=== PATIENT | male | born 1950 | race Caucasian/White ===

== ENCOUNTER → 2017-02-22 | Outpatient (CLI) | payer MEDICARE, OTHER ==
--- NOTE | 2017-02-25 07:19 | RADIOLOGY REPORT PS360 ---
MRI-C-SPINE W/O, MRI-3D RENDERING/MYELOGRAM HISTORY: Headaches, left-sided neck pain when turning head CERVICO-OCCIPITAL NEURALGIA ORDERING PHYSICIAN: BRENDA CAMPBELL PATIENT AGE: 67 years COMPARISON: 05/04/2016 TECHNIQUE: Standard multiplanar multiecho sequences are performed without contrast. 3-D MIP and myelographic images are also rendered and reviewed FINDINGS: The cervical occipital junction has an unremarkable appearance. No evidence of cerebellar ectopia. C2-C3: Small left paracentral disc osteophyte complex with mild left lateral recess narrowing and mild left foraminal narrowing C3-C4: Mild degenerative disc disease with small concentric bulging disc eccentric to the left and mild left uncovertebral hypertrophy with mild to moderate left foraminal narrowing. C4-C5: Degenerative disc disease with bulging disc. There is uncovertebral hypertrophy with bilateral foraminal narrowing and borderline narrowing of the canal C5-C6: Degenerative disc disease with bulging disc slightly eccentric to the left with endplate hypertrophic change and with narrowing of the spinal canal with bilateral uncovertebral spurring and left lateral recess narrowing and bilateral foraminal narrowing left greater than right. C6-C7: Degenerative disc disease with mild bulging disc and mild bilateral uncovertebral hypertrophy with mild bilateral foraminal narrowing C7-T1: Mild concentric bulging disc IMPRESSION: 1. Abnormal MRI of the cervical spine with multilevel cervical spondylosis with degenerative disc disease, disc osteophyte complexes, bulging disc, facet and uncovertebral hypertrophy and narrowing of the canal as detailed at each level above. Please see above for detailed description at each level. 2. Small left paracentral disc osteophyte complex C2-C3. 3. Canal stenosis at C5-C6 4. Overall no significant change from 05/04/2016
== END ==
LOC: RAD 07:42
DX: M54.81 Occipital neuralgia (principal)